=== PATIENT | male | born 1955 | race Caucasian/White ===

== ENCOUNTER → 2016-10-22 | Outpatient (CLI) | payer BC ==
[~2016-10-22] MED LIST: APIX1TAB3 PO; ASPI81TA28 PO; BIOT1TAB7 PO; METO25TA56 PO; MULT-506 PO; OMEG10007 PO; TRIA0.1O12 TOP
--- NOTE | 2016-10-22 12:20 | DIAGNOSTIC IMAGING REPORT ---
RIBS UNILATERAL WITH PA CHEST CLINICAL HISTORY: Right upper anterior rib pain from recent injury. COMPARISON STUDY: Chest CT 03/23/2013. FINDINGS: The lungs are clear. The heart is normal in size. No pleural effusions. No pneumothorax. No acute rib fractures. IMPRESSION: No rib fractures. No pneumothorax. Electronically signed by: Herber Sawyer M.D. 10/22/2016 12:18 PM Dictated Date/Time: 10/22/2016 12:14 PM
== END | disposition home or self-care (01) ==
LOC: C.RAD1850 11:21
PROVIDERS: ATTEND Family Medicine
DX: R07.9 Chest pain, unspecified (principal)